=== PATIENT | female | born 1970 | race Caucasian/White ===

== ENCOUNTER 2016-07-17 00:43 | Emergency (ER) | payer SELFPAY ==
[2016-07-17] MEDS ORDERED: IOPAMIDOL 300 (61%) 100 ML VIAL IV ONE (00:44)
[2016-07-17] MEDS ORDERED: LACTATED RINGERS 1,000 ML ONE (01:28)
[2016-07-17] MEDS ORDERED: MAALOX/LIDO2%VISC/SIMETHICONE 40 ML BOT ONE (01:28)
[2016-07-17 01:34] LABS: ABSOLUTE NEUTROPHIL COUNT 4.4 K/mm3 (1.8-7.7); BASO # 0.1 K/mm3 (0.0-0.2); BASO % 1.2 % (0.2-1.0); EOS # 0.1 (0.0-0.5); EOS % 0.7 % (0.9-2.9); HEMATOCRIT 38.3 % (37.0-47.0); HEMOGLOBIN 11.2 gm/l (12.0-16.0); IMM NEUT% 0.1 % (0-1); LYMPH # 1.9 (1.0-4.8); LYMPH % 27.3 % (15-45); MEAN CELL VOLUME 72.5 fl (81.0-99.0); MEAN CORPUSCULAR HEMOGLOBIN 21.2 pg (27.0-31.0); MEAN CORPUSCULAR HGB CONC 29.2 g/dl (33.0-37.0); MEAN PLATELET VOLUME 8.9 fl (7.4-10.4); MONO # 0.5 (0.0-0.8); MONO % 6.8 % (4-12); NEUT % 63.9 % (43-75); PLATELET COUNT 310 K/mm3 (130-400); RED CELL DISTRIBUTION WIDTH 17.2 % (11.5-14.5)
[2016-07-17 01:57] LABS: ALB/GLOB RATIO 1.7 (>1.0); ALBUMIN 4.4 gm/dL (3.5-5.7); CALCIUM 8.9 mg/dL (8.6-10.3)
[2016-07-17 02:30] LABS: SPECIFIC GRAVITY 1.025 (1.001-1.030); URINE BILIRUBIN NEGATIVE (NEGATIVE); URINE BLOOD NEGATIVE (NEGATIVE); URINE GLUCOSE (UA) NEGATIVE (NEGATIVE); URINE LEUKOCYTE ESTERASE NEGATIVE (NEGATIVE); URINE NITRITE NEGATIVE (NEGATIVE); URINE PROTEIN TRACE (NEGATIVE); URINE UROBILINOGEN NORMAL (0-1 mg/dl)
[2016-07-17 02:31] LABS: URINE APPEARANCE CLEAR; URINE COLOR YELLOW
[2016-07-17 02:40] LABS: AMPHETAMINES/METHAMPHETAMINES POSITIVE (NEGATIVE); COCAINE NEGATIVE (NEGATIVE); MARIJUANA POSITIVE (NEGATIVE); METHADONE NEGATIVE (NEGATIVE); OPIATES POSITIVE (NEGATIVE); TRICYCLIC ANTIDEPRESSANTS NEGATIVE (NEGATIVE)
[2016-07-17] MEDS ORDERED: PANTOPRAZOLE 40 MG TABLET DR PO ONE (03:24)
[2016-07-17] MEDS ORDERED: POTASSIUM CHLORIDE 20 MEQ TAB.PRT.SR ONE (03:24)
--- NOTE | 2016-07-17 08:14 | CT ---
ABD/PELVIS W/ CON COMPARISON: None. HISTORY: 46-year-old female with ulcerative colitis presents with epigastric abdominal pain that started today, worsening over the past 2 hours. Past surgical history includes gastric bypass and hysterectomy diffuse abdominal tenderness, moderate in the epigastric region. Positive blood screen for amphetamines/methamphetamines, opiates, and marijuana. Technique: No oral contrast. Intravenous injection 100 mL Isovue 300. Using a [employer] Aquilion [address] scanner, images were obtained from the diaphragm to the floor the pelvis. An automated dose reduction technique was used to minimize patient radiation dose. Dose information: CTDIvol (mGy): 10.50 DLP(mGycm): 515.00 FINDINGS: Lung bases: Normal. Inferior mediastinum and heart: Normal. Liver: Normal. Gallbladder:Normal. Bile ducts: Normal. Pancreas: Normal. Spleen: Normal. Adrenal glands: Normal. Kidneys: Normal. Ureters: Normal Urinary bladder: Normal. Uterus and adnexa: Hysterectomy Blood vessels: Normal Lymph nodes: Normal Stomach: Status post gastric bypass with calcified sutures at the bypass level. No hiatal hernia. No mass. No obstruction. Duodenum: Normal Small intestine: Status post gastric bypass with some calcified sutures of the proximal small bowel. Diffuse mild wall thickening and fluid in the lumen in the jejunum. No obstruction. Appendix: Normal Colon: Normal Abdominal wall and supporting musculature: Normal Bones: L3-4 and L4-5 moderate disc narrowing and moderate disc protrusions. IMPRESSION: 1. Satisfactory appearance of gastric bypass without evidence of complication. 2. Mild thickening of the wall of the jejunum with fluid in the lumen, differential diagnosis normal versus enteritis. 3. L3-4 and L4-5 moderate disc narrowing and moderate disc protrusions. 4. Hysterectomy. Preliminary report by [facility] radiologist Ori Canales M.D. 07/17/2016 at 02:58
== END 2016-07-17 03:37 | disposition home or self-care (01) ==
LOC: ED 00:43
DX: R10.13 Epigastric pain (principal); E87.6 Hypokalemia; I10 Essential (primary) hypertension; F17.210 Nicotine dependence, cigarettes, uncomplicated; Z98.84 Bariatric surgery status
CPT/HCPCS: 83605; 83690; 84703; 85025; 80305; 80053; 80307; 81003; 74177; 99284 ×2; 96360; A9270 ×3; J7120; Q9967